=== PATIENT | female | born 1995 | race African-American/Black ===

== ENCOUNTER 2023-06-28 16:11 | Emergency (ER) | payer OTHER ==
[~2023-06-28] VITALS: Ht 170.2 cm; Wt 81.0 kg
[2023-06-28] MEDS ORDERED: [UNRECOGNIZED DRUG - REMARK] IVP (16:18)
[2023-06-28 17:49] LABS: APPEARANCE,URINE CLEAR (CLEAR); BILIRUBIN,URINE NEGATIVE (NEGATIVE); COLOR,URINE YELLOW (YELLOW); GLUCOSE, URINE (UA) NEGATIVE (NEGATIVE); KETONES,URINE TRACE mg/dL (NEGATIVE); LEUKOCYTE ESTERASE ,URINE NEGATIVE (NEGATIVE); NITRATE,URINE NEGATIVE (NEGATIVE); OCCULT BLOOD,URINE NEGATIVE (NEGATIVE); PROTEIN,URINE TRACE mg/dL (NEGATIVE); SPECIFIC GRAVITIY, URINE 1.034 (1.003-1.030); UROBILINOGEN,URINE <=1.0 mg/dL (<=1.0)
[2023-06-28 18:35] VITALS: TEMP 98.1
[2023-06-28 18:36] VITALS: BP 109/65; PULSE 94; RESP 16
== END 2023-06-28 18:42 | disposition home or self-care (01) ==
LOC: EMS 16:13
DX: R33.9 Retention of urine, unspecified (principal); Z98.890 Other specified postprocedural states
CPT/HCPCS: 51702; 81003; 84703; 99284

== ENCOUNTER 2023-09-19 18:44 | Emergency (ER) | payer OTHER ==
[~2023-09-19] VITALS: Ht 170.2 cm; Wt 81.8 kg
[~2023-09-19 18:44] MED LIST: [UNRECOGNIZED DRUG - REMARK] IVP
[2023-09-19 19:01] VITALS: BP 133/83; PULSE 79; RESP 18; TEMP 98
== END 2023-09-19 21:08 | disposition left against medical advice (07) ==
LOC: EMS 18:47
DX: H11.32 Conjunctival hemorrhage, left eye (principal)
CPT/HCPCS: 70450; 70486; 99284

== ENCOUNTER 2024-08-14 08:38 | Emergency (ER) | payer OTHER ==
[~2024-08-14] VITALS: Ht 170.2 cm; Wt 87.0 kg
[2024-08-14 08:55] VITALS: TEMP 98.2
[2024-08-14] MEDS: HYDROCODONE/ACETAMINOPHEN 5-325 MG TABLET PO ONE (11:12)
[2024-08-14] MEDS: KETOROLAC TROMETHAMINE 60 MG/2 ML VIAL IM ONE (11:13)
[2024-08-14 11:29] LABS: APPEARANCE,URINE HAZY (CLEAR); BILIRUBIN,URINE NEGATIVE (NEGATIVE); GLUCOSE, URINE (UA) NEGATIVE (NEGATIVE); KETONES,URINE NEGATIVE (NEGATIVE); LEUKOCYTE ESTERASE ,URINE NEGATIVE (NEGATIVE); NITRATE,URINE NEGATIVE (NEGATIVE); OCCULT BLOOD,URINE NEGATIVE (NEGATIVE); PH,URINE 5.5 (5.0-8.0); PROTEIN,URINE 30-70 mg/dL (NEGATIVE); SPECIFIC GRAVITIY, URINE 1.019 (1.003-1.030); UROBILINOGEN,URINE <=1.0 mg/dL (<=1.0)
[2024-08-14 11:32] LABS: COLOR,URINE DARK ORANGE (YELLOW)
[2024-08-14 11:35] VITALS: BP 137/86; PULSE 88; RESP 18; O2SAT 99
[2024-08-14 11:36] LABS: BACTERIA,URINE Moderate /HPF (None Seen)
[2024-08-14 11:37] LABS: SQUAMOUS EPITHELIAL CELL,UR Moderate /LPF (None Seen)
[2024-08-14 11:38] LABS: HCG,QUAL URINE NEGATIVE (NEGATIVE)
[2024-08-14] MEDS ORDERED: HYDR-4062 PO (13:03)
[2024-08-14] MEDS ORDERED: IBUP-1554 PO (13:03)
[2024-08-14] MEDS ORDERED: DOXY-354 PO (13:03)
[2024-08-14] MEDS ORDERED: CEPH-558 PO (13:03)
[2024-08-14] MEDS: CefTRIAXone SODIUM 1 GM/VIAL IM ONE (13:20)
[2024-08-14] MEDS: LIDOCAINE/PF 1% 2 ML VIAL IM ONE (13:20)
== END 2024-08-14 13:29 | disposition home or self-care (01) ==
LOC: EMS 08:39
DX: N75.1 Abscess of Bartholin's gland (principal)
CPT/HCPCS: 99284; 81001; 84703; 87086; 96372; J1885; J0696; J3490